=== PATIENT | female | born 1995 | race Caucasian/White ===

== ENCOUNTER 2023-08-08 10:17 | Emergency (ER) | payer OTHER ==
[~2023-08-08] VITALS: Ht 167.6 cm; Wt 75.7 kg
[2023-08-08 10:31] VITALS: BP 134/78; PULSE 98; RESP 18; O2SAT 95
[2023-08-08] MEDS ORDERED: HYDROcodone-ACET 5/325MG TAB PO ONE (13:45)
== END 2023-08-08 14:36 | disposition left against medical advice (07) ==
LOC: ER 10:17
DX: M25.511 Pain in right shoulder (principal); M54.2 Cervicalgia; R20.0 Anesthesia of skin